=== PATIENT | female | born 1950 | race Caucasian/White ===

== ENCOUNTER 2021-09-02 10:46 | Emergency (ER) | payer MEDICARE, OTHER ==
[~2021-09-02] VITALS: Ht 160 cm; Wt 72.0 kg
[~2021-09-02 10:46] MED LIST: ASPI-556 PO; CAPT12.55 PO
[2021-09-02 13:51] VITALS: BP 148/75
== END 2021-09-02 14:01 | disposition home or self-care (01) ==
LOC: EMS 10:46
DX: S40.011A Contusion of right shoulder, initial encounter (principal); S70.12XA Contusion of left thigh, initial encounter; S80.12XA Contusion of left lower leg, initial encounter; I10 Essential (primary) hypertension; F17.210 Nicotine dependence, cigarettes, uncomplicated; X58.XXXA Exposure to other specified factors, initial encounter; Y93.89 Activity, other specified; Y92.811 Bus as the place of occurrence of the external cause; Y99.8 Other external cause status
CPT/HCPCS: 99283

== ENCOUNTER 2023-08-12 16:29 | Emergency (ER) | payer MEDICARE, OTHER ==
[~2023-08-12] VITALS: Ht 142.2 cm; Wt 72.0 kg
[~2023-08-12 16:29] MED LIST changes: -CAPT12.55 PO; +LISI10TA24 PO; +SERT-439 PO; +TRAM50TA5 PO
[2023-08-12 16:32] VITALS: TEMP 98
[2023-08-12] MEDS ORDERED: ATOR40TA71 PO (17:49)
[2023-08-12] MEDS ORDERED: ASPI-1444 PO (17:49)
[2023-08-12] MEDS ORDERED: ALBU18HF12 IH (17:49)
[2023-08-12] MEDS ORDERED: ROPI0.5T37 PO (17:49)
[2023-08-12] MEDS: KETOROLAC TROMETHAMINE 30 MG/ML VIAL IM ONE (18:27)
[2023-08-12] MEDS: DICLOFENAC SODIUM 1% 100 GM GEL [4GM] TP ONE (18:27)
[2023-08-12 19:18] VITALS: BP 142/96; PULSE 82; RESP 18
== END 2023-08-12 19:19 | disposition home or self-care (01) ==
LOC: EMS 16:35
DX: M25.561 Pain in right knee (principal); I10 Essential (primary) hypertension; F17.210 Nicotine dependence, cigarettes, uncomplicated
CPT/HCPCS: 99283; 96372; J1885